=== PATIENT | female | born 1985 | race Two or more races ===

== ENCOUNTER 2022-06-15 18:23 | Emergency (ER) | payer OTHER ==
[~2022-06-15] VITALS: Ht 175.3 cm; Wt 108.9 kg
[~2022-06-15 18:23] MED LIST: MAXFE CAPLET1 EACH PO; NAPROXEN500 MG PO; NIFEDIPINE ER30 MG PO; PEPCID AC20 MG PO; PEPCID20 MG PO; PEPCID40 MG; PRENATABS FA T1 EACH PO; PRENATABS RX TA1 TAB; PRENATAL TABLE1 EACH PO; ZOFRAN ODT8 MG/UDTAB PO; ZOFRAN4 MG PO; ZOFRAN4 MG/5 ML ID
[2022-06-15] MEDS ORDERED: CLONAZEPAM0.5 MG (18:47)
[2022-06-15] MEDS ORDERED: BUPROPION XL450 MG (18:47)
[2022-06-15] MEDS ORDERED: DICLOFENAC SODI75 MG PO (21:05)
== END 2022-06-15 21:32 | disposition home or self-care (01) ==
LOC: ER 18:23
DX: O03.9 Complete or unspecified spontaneous abortion without complication (principal); N83.202 Unspecified ovarian cyst, left side